=== PATIENT | male | born 1995 | race Caucasian/White ===

== ENCOUNTER 2024-08-14 02:51 | Emergency (ER) | payer SELFPAY ==
[2024-08-14 02:57] VITALS: BP 140/82
[2024-08-14 03:40] VITALS: BMI 38.0
--- NOTE | 2024-08-14 03:53 | ED.MUSCINJ ---
HPI-Injury
General
Chief Complaint: Musculo-Skeletal Complaint
Source: patient
Exam Limitations: none
Time Seen by Provider: 08/14/24 03:14
Nursing documentation reviewed up to this point in time: agreed with
History of Present Illness-Injury
Is pt an associate of [facility]?: No
Initial Injury comments:
Pleasant 28-year-old male presents with left foot pain after dropping a trampoline box on his foot. He works for [employer] and states that he inadvertently dropped the box landing on his first 2 digits of his left foot. He noticed immediate swelling.
He estimates that the box was about 150 pounds. Denies any other injury.
Review of Systems
Review of Systems
Allergies reviewed?: Yes
Other source history: family
All Other Systems: ROS reviewed and negative except as documented in HPI and ROS
EENT: Reports no symptoms
Respiratory: Reports no symptoms
Cardiac: Reports no symptoms
: Reports no symptoms
Musculoskeletal: Reports joint pain and joint swelling
Skin: Reports no symptoms
Neurological: Reports no symptoms
Endocrine: Reports no symptoms
Hematologic/Lymphatic: Reports bruising
Psychiatric: Reports no symptoms
Skin Exam
Abrasion
Left Distal Foot:
Description of abrasion: superfical/clean
Phy Exam
General Physical Exam
General Presentation: well appearing and mild distress
General Skin: warm and dry
General Habitus: normal
Cardiovascular Exam
Cardiovascular Exam: regular rate/rhythm
Pulmonary Exam
Pulmonary Exam: no respiratory distress, no rhonchi, no wheezing and no cough
Neurological Exam
Neurological Exam: alert, oriented x3 and speech normal
Musculoskeletal Exam
Musculoskeletal Exam: full ROM, no edema and neuro vasc intact
Skin Exam
Skin Exam: normal color and warm/dry
Psychiatric Exam
Psychiatric Exam: normal mood/affect
Injury Course
Orders/Labs/Results
Orders:
Orders
08/14/24 03:04
Foot, Left 3 View [CR Foot - Left Min 3 Views] Urgent
Comment:
Reason For Exam: dropped 150 pound weight on foot
08/14/24 03:52
Ibuprofen [Motrin] 600 mg PO NOW STA
*Critical Care Note
Total Time (30-74mins, 75-104mins- exclusive of procedures): Not Applicable
ED Attending Note
-
Portions of this chart may have been created with voice recognition software.� Occasional wrong word or��sound alike� substitutions may have occurred due to the inherent limitations of voice recognition software.
Discharge Plan
Departure
Patient Disposition: Home (Routine Discharge)
Date of Disposition: 08/14/24
Time of Disposition: 03:59
Patient with high blood pressure during this ER visit?: No
Condition: Good
Discharge Problem:
Contusion
Instructions: Contusion (DC), Using Cold for Pain, BLOOD PRESSURE
Referrals:
[facility] [Provider Group]
Stand Alone Forms: Return to Work
Activity Restrictions/Additional Instructions:
It was a pleasure meeting you and taking part in your care. We hope for your continued healing and wellness.
Please read discharge instructions in their entirety. However, they are for general education and may not describe your exact diagnosis at discharge. Information on your ER visit and medical conditions were discussed with you along with appropriate
follow up information...
If indicated, please take your medications as instructed and indicated on discharge paperwork.
Please schedule a follow up appointment as directed. Call to schedule an appointment
Please return to the emergency department with ANY change in, persisting, or worsening of symptoms. If any of your symptoms do not improve, or persist, or become more severe within 6-12 hours, please return to the emergency department for further
care.
Please return to the emergency department if you develop a headache, neck pain/stiffness, fever greater than 100.4F, chest pain, shortness of breath, persistent nausea, vomiting, slurred speech, difficulty walking, numbness/tingling, weakness, signs
of infection or any other symptoms that are worrisome to you.
If you have any questions or concerns please do not hesitate to call the Hospital at or E-mail me directly at [email or web address]
Interventions
Interventions:
*Risk Screen - Suicide Last Done: 08/14/24 02:57
*General Assessment Last Done: 08/14/24 03:40
*Neglect/Abuse Screening Last Done: 08/14/24 02:57
ED- Fall Risk Assessment Last Done: 08/14/24 03:40
*ED COVID-19 Vaccine History Last Done: 08/14/24 03:40
*Nursing Disposition Last Done: 08/14/24 04:25
ED-Musculoskeletal Assessment Last Done: 08/14/24 03:40
Discharge Date and Time
Discharge Date/Time: 08/14/24 04:25
Print Language: UZBEK
[2024-08-14] MEDS: MOTRIN 600 MG PO (04:06)
== END 2024-08-14 04:25 | disposition home or self-care (01) ==
LOC: EMR 02:51
PROVIDERS: EMERGENCY PHYSICIAN Student in an Organized Health Care Education/Training Program; FAMILY PHYSICIAN Family Medicine
DX: S90.32XA Contusion of left foot, initial encounter (principal); S90.812A Abrasion, left foot, initial encounter; M25.475 Effusion, left foot; W20.8XXA Other cause of strike by thrown, projected or falling object, initial encounter; Y93.89 Activity, other specified; Y92.89 Other specified places as the place of occurrence of the external cause; Y99.0 Civilian activity done for income or pay
CPT/HCPCS: 99283; 73630

== ENCOUNTER 2025-10-23 18:11 | Emergency (ER) | payer OTHER, SELFPAY ==
[2025-10-23 18:16] VITALS: BP 145/84
--- NOTE | 2025-10-23 18:27 | ED.SKININJ ---
HPI-Injury
General
Chief Complaint: Bite
Source: patient
Time Seen by Provider: 10/23/25 18:23
History of Present Illness-Injury
Initial Injury comments:
30-year-old male presenting to the emergency department for evaluation after he was bit on the right hand by a friend's dog just prior to arrival. No other injuries were sustained. Patient vaccinations are up-to-date as well as the dog's
vaccinations are up-to-date. Patient is right-hand dominant.
Past History
Past History
ED Past Medical History: None
ED Past Surgical History: Orthopedic
Social History
Tobacco: Non-smoker
Alcohol: Occasional
Drug: None
Personal: Single
Living: with family
Employment: Employed
Review of Systems
Review of Systems
All Other Systems: ROS reviewed and negative except as documented in HPI and ROS
Phy Exam
Physical Exam
Physical Exam:
GENERAL: Alert , in no apparent distress
EYE: conjunctiva clear
Head: Normocephalic atraumatic
NECK: Supple,
ENT: mmm.
LUNGS: no acute respiratory distress
NEUROLOGICAL: Alert and oriented
SKIN: Warm and dry, 2 separate puncture wounds on the right hand, 1 on the palmar surface and between the 2nd and 3rd MCP and then another puncture wound on the right index finger dorsal surface, no active bleeding
MUSCULOSKELETAL: well perfused. Full range of motion all digits
PSYCH: Normal and appropriate interaction.
Scores
Heart Failure Risk
Heart Failure Risk Score: Not Applicable
Heart Score for Chest Pain Patients
STEMI patient?: Not applicable
Withdrawal Assessment of Alcohol
Withdrawal Assessment Completed?: Not applicable
Course
Orders/Labs/Results
Orders:
Orders
10/23/25 18:28
Amoxicillin 875 mg/Clav 125 mg [Augmentin 875 mg/125 mg] 1 tablet PO NOW STA
Vital Signs
Initial and Last Documented VS:
Initial Vital Signs
Temp Pulse Resp BP Pulse Ox
98.6 F 79 20 145/84 99
10/23/25 18:16 10/23/25 18:16 10/23/25 18:16 10/23/25 18:16 10/23/25 18:16
Last Documented Vital Signs
Temp Pulse Resp BP Pulse Ox
98.6 F 79 20 145/84 99
10/23/25 18:16 10/23/25 18:16 10/23/25 18:16 10/23/25 18:16 10/23/25 18:27
MDM/Problems Addressed
Differential Diagnosis Includes:
Dog bite with superficial lacerations
No concern for fracture
No concern for foreign body
MDM/Problems Addressed:
30-year-old male presenting to the ER for evaluation after being bit on the right hand by a known dog. Both the patient and dogs vaccines are up-to-date. Patient's hand was irrigated with copious amounts of normal saline. A dose of Augmentin was
given to him here in the ER. Based off the wounds I do not have concern for foreign body or fracture. Motrin/Tylenol as needed for pain. Patient advised on wound care as well as return precautions to the ER.
*Pulse Oximetry
SaO2: 99
Oxygen Mode of Delivery: Room air
Patient hypoxic: no
*Critical Care Note
Total Time (30-74mins, 75-104mins- exclusive of procedures): Not Applicable
ED Attending Note
-
Portions of this chart may have been created with voice recognition software.� Occasional wrong word or��sound alike� substitutions may have occurred due to the inherent limitations of voice recognition software.
Discharge Plan
Departure
Patient Disposition: Home (Routine Discharge)
Date of Disposition: 10/23/25
Time of Disposition: 18:27
Patient with high blood pressure during this ER visit?: Yes
Discharge Problem:
Dog bite of right hand
Instructions: Animal Bites (DC)
Prescriptions:
New
amoxicillin-pot clavulanate 875-125 mg tablet
1 tab PO BID 5 Days Qty: 10 0RF
Interventions
Interventions:
*Risk Screen - Suicide Last Done: 10/23/25 18:16
*Neglect/Abuse Screening Last Done: 10/23/25 18:16
Discharge Date and Time
Print Language: TAIWANESE
[2025-10-23] MEDS: AUGMENTIN 875 MG/125 MG 1 TABLET PO (19:15)
== END 2025-10-23 19:33 | disposition home or self-care (01) ==
LOC: EMR 18:11
PROVIDERS: EMERGENCY PHYSICIAN Emergency Medicine
DX: S61.451A Open bite of right hand, initial encounter (principal); W54.0XXA Bitten by dog, initial encounter
CPT/HCPCS: 99282

== ENCOUNTER 2025-11-01 11:04 | Emergency (ER) | payer OTHER, SELFPAY ==
[2025-11-01 11:12] VITALS: BP 119/72
[2025-11-01] MEDS: TORADOL 30 MG IV (11:28)
[2025-11-01] MEDS: DILAUDID 0.5 MG IV (11:29)
[2025-11-01] MEDS: ZOFRAN 4 MG IV (11:29)
[2025-11-01] MEDS: NSS 1000 IV (11:30)
[2025-11-01 11:38] VITALS: BP 134/66
[2025-11-01 11:40] VITALS: BMI 38.7
[2025-11-01 11:42] LABS: Hematocrit 45.0 % (39.0-52.0); Hemoglobin 15.8 g/dL (13.0-18.0); Mean Corp Hgb Conc. 35.1 g/dL (33.0-37.0); Mean Corpuscular Volume 82.1 fL (80.0-94.0); Nucleated Red Blood Cells % 0 % (-); Platelet Count 301 10^3/uL (130-400); Red Cell Dist. Width 11.9 % (11.5-14.5)
[2025-11-01 11:52] LABS: ALT (SGPT) 43 U/L (0-50); AST (SGOT) 31 U/L (17-59); Albumin 4.5 g/dl (3.5-5.0); Alkaline Phosphatase 89 U/L (38-126); Blood Urea Nitrogen 12 mg/dl (9-20); Calcium 9.1 mg/dl (8.4-10.2); Carbon Dioxide 24 mmol/L (22-30); Chloride 106 mmol/L (98-107); Estimated Creatinine Clearance > 125 ml/min; Glucose 109 mg/dl (70-99); Lipase 90 U/L (23-300); Potassium 3.6 mmol/L (3.5-5.1); Sodium 137 mmol/L (135-145); Total Protein 7.4 g/dl (6.3-8.2); eGFR > 60.00
[2025-11-01 12:00] VITALS: BP 118/81
[2025-11-01 12:05] VITALS: BP 188/81
[2025-11-01 13:00] VITALS: BP 117/67
[2025-11-01 13:42] LABS: Urine Character Clear (Clear)
[2025-11-01 13:46] LABS: Urine Red Blood Cell 16-20 /HPF (0-2); Urine Squamous Cell 0-2 /LPF (Few)
[2025-11-01] MEDS: ROCEPHIN 1000 MG IV (14:25)
[2025-11-01 14:28] VITALS: BP 115/65
--- NOTE | 2025-11-01 15:06 | ED.GENMED ---
History of Present Illness
General
Chief Complaint: Flank Pain
Time Seen by Provider: 11/01/25 11:16
History of Present Illness
History of Present Illness:
see MDM
Past History
Past History
ED Past Medical History: None
ED Past Surgical History: Orthopedic
Social History
Tobacco: Non-smoker
Alcohol: Occasional
Drug: None
Personal: Single
Living: with family
Employment: Employed
Phy Exam
Physical Exam
Physical Exam:
see MDM
Course
Orders/Labs/Results
Orders:
Orders
11/01/25 11:21
0.9% Sodium Chloride 1000 ml [Nss] 1,000 ml IV BOLUS
HYDROmorphone [Dilaudid] 0.5 mg IV NOW STA
Ketorolac [Toradol] 30 mg IV NOW STA
Ondansetron Injectable [Zofran] 4 mg IV NOW STA
11/01/25 11:22
CT Abd/pel Without Iv Or Oral Urgent
Comment:
Reason For Exam: R flank pain, h/o stones
11/01/25 11:33
Complete Blood Count/With Diff Urgent
Comprehensive Metabolic Panel Urgent
Lipase Urgent
11/01/25 13:18
Urinalysis Reflex To Culture Urgent
Date Specimen was Collected: 11/01/25
Time Specimen was Collected: 13:11
Urine Microscopic Reflex Cult Urgent
11/01/25 14:09
CefTRIAXone [Rocephin] 1,000 mg IV NOW STA
11/01/25 14:18
Sterile Water [Sterile Water For Injection] 10 ml .ROUTE .STK-MED ONE
Abnormal Lab Results
11/01/25 11/01/25
11:33 13:18
MPV 10.6 H fL
(7.4-10.4)
Absolute Monos (auto) 0.9 H 10^3/uL
(0.1-0.6)
Monocytes % 10.9 H %
(1.7-9.3)
Glucose 109 H mg/dl
(70-99)
Ur Occult Blood Reflex 4+ A
(Negative)
Urine RBC 16-20 A /HPF
(0-2)
Urine Bacteria (Reflex) Few A
(Negative)
Urine Albumin (Reflex) 2+ A
(Neg - Trace)
11/01/25 11:33
11/01/25 11:33
Vital Signs
Initial and Last Documented VS:
Initial Vital Signs
Temp Pulse Pulse Ox
36.2 C 68 100
11/01/25 11:05 11/01/25 11:05 11/01/25 11:05
Last Documented Vital Signs
Temp Pulse Resp BP Pulse Ox
36.2 C 61 19 115/65 97
11/01/25 11:05 11/01/25 14:28 11/01/25 14:28 11/01/25 14:28 11/01/25 14:30
MDM/Problems Addressed
MDM/Problems Addressed:
Note:
CHIEF COMPLAINT(S)
Right-sided abdominal pain.
HISTORY OF PRESENT ILLNESS
The patient is a 30-year-old male who presented with right-sided abdominal pain, which began suddenly today at 10:30 AM. The patient describes the pain as severe, rating it a ten on a scale of zero to ten. The pain is described as constant and
wrapping around his right side. The patient reports associated nausea and has vomited twice. He denies any history of kidney stone removal and has had one previous kidney stone. The patient has no known urologist. He denies fever and chills. The
patient reports experiencing pressure to urinate but has not yet provided a urine sample.
pt has not had any bloody urine
this feels like similar previous kidney stone
no scrotal pain
PAST MEDICAL AND SURGICAL HISTORY
The patient has a history of one previous kidney stone.
EXTERNAL RECORDS REVIEWED
No external records were available for review.
SOCIAL DETERMINANTS AFFECTING HEALTH
The patients spouse is present and will be able to drive him home after discharge.
PHYSICAL EXAM
GENERAL: Alert, uncomfortable
Neck: supple
CARDIAC: Regular rate and rhythm .
LUNGS: Clear breath sounds bilaterally, no acute respiratory distress, no wheezes/rales/rhonchi
ABDOMEN: Soft, normal bowel sounds, nondistended, nontender no guarding, no rebound, neg walton's
No CVA tenderness
NEUROLOGICAL: Alert and oriented, no focal neuro deficits
SKIN: Warm and dry, skin intact.
PSYCH: Normal and appropriate interaction.
Nursing notes reviewed and vital signs reviewed.
PROBLEM LIST
Acute:
- Suspected kidney stone.
- Right-sided abdominal pain with associated nausea and vomiting.
PLAN
Administer intravenous Toradol (ketorolac tromethamine), Dilaudid (hydromorphone hydrochloride), and Zofran (ondansetron). Encourage the patient to provide a urine sample when possible. A computed tomography scan will be conducted to further
evaluate the condition.
DIFFERENTIAL DIAGNOSIS
The Differential Diagnosis includes, in no particular order and is not limited to:
1. Nephrolithiasis (kidney stone)
2. Pyelonephritis
3. Appendicitis
4. Ureteral obstruction
5. Gastroenteritis
6. Diverticulitis
7. Cholecystitis
8. Pancreatitis
9. Musculoskeletal pain
10. Hernia
CARE-UPDATE
11/01/25 - 14:06
The patient likely passed a small kidney stone as indicated by hematuria, though the CT scan did not reveal any stones or hydronephrosis. The patients pain has improved since receiving analgesics. No concerning findings on the CT scan, so discharge
with advice to continue taking Tylenol and ibuprofen, stay hydrated, and return if symptoms worsen. The patient reports mild burning during urination but confirms no difficulty in urination.
bacteria and some wbc in urine
will treat with 1 dose of rocephin; pt wassaying that he felt like a burning sensation when he last urineated (may have been the kidney stone)
d/c home pain is resolved
*Pulse Oximetry
SaO2: 97
Oxygen Mode of Delivery: Room air
Patient hypoxic: no (97)
*Critical Care Note
Total Time (30-74mins, 75-104mins- exclusive of procedures): Not Applicable
ED Attending Note
-
Portions of this chart may have been created with voice recognition software.� Occasional wrong word or��sound alike� substitutions may have occurred due to the inherent limitations of voice recognition software.
Discharge Plan
Departure
Patient Disposition: Home (Routine Discharge)
Date of Disposition: 11/01/25
Time of Disposition: 14:07
Patient with high blood pressure during this ER visit?: No
Condition: Fair
Covid-19: Not Applicable
Discharge Problem:
Flank pain
Instructions: Flank Pain (DC)
Prescriptions:
No Action
amoxicillin-pot clavulanate 875-125 mg tablet
1 tab PO BID 5 Days Qty: 10 0RF
Referrals:
Veronica Horne PA-C [Family Provider] - Follow up in 2-3 days
Activity Restrictions/Additional Instructions:
Your urine had some blood in it which you should make sure it clears up, you can call your family doctor for this. I gave you a dose of antibiotics just in case you had a mild infection.
Drink plenty fluids, Tylenol Motrin for pain.
There was no visualized kidney stone on your CAT scan but you could have passed a stone. Incidentally you also have a small pulmonary nodule measuring 4 mm. If you are non-smoker this does not need follow-up. If you are smoker this needs
follow-up in 6 to 12 months.
Return for any concerns
Interventions
Interventions:
*Risk Screen - Suicide Last Done: 11/01/25 11:05
*General Assessment Last Done: 11/01/25 11:05
*Neglect/Abuse Screening Last Done: 11/01/25 11:05
*ED COVID-19 Vaccine History Last Done: 11/01/25 12:04
*ED Influenza Vaccine History Last Done: 11/01/25 12:04
[facility] Fall Risk Assessment Tool Last Done: 11/01/25 11:40
*Nursing Disposition Last Done: 11/01/25 14:53
JY-Bnhdtq-Suvarvrxtu Assessment Last Done: 11/01/25 11:40
ED-Male Genitourinary Assessment Last Done: 11/01/25 11:40
Discharge Date and Time
Print Language: [place] ISLAND[place]
== END 2025-11-01 14:53 | disposition home or self-care (01) ==
LOC: EMR 11:04
PROVIDERS: Physician Assistant; EMERGENCY PHYSICIAN Emergency Medicine; FAMILY PHYSICIAN Physician Assistant Medical
DX: R10.A1 Flank pain, right side (principal); Z87.442 Personal history of urinary calculi
CPT/HCPCS: 99284; 96374; 96375 ×3; 96361 ×2; 74176; 80053; 81003; 81015; 83690; 85025